=== PATIENT | male | born 1980 | race Caucasian/White ===

== ENCOUNTER 2025-04-22 16:43 | Emergency (ER) | payer OTHER ==
[~2025-04-22] VITALS: Ht 190.5 cm; Wt 109.5 kg
[2025-04-22 17:07] VITALS: TEMP 98.2
[2025-04-22] MEDS ORDERED: ATOR-2 PO (17:18)
[2025-04-22] MEDS ORDERED: LOSA50TA65 PO (17:18)
[2025-04-22] MEDS ORDERED: ASPI81TA87 PO (17:18)
[2025-04-22 17:22] LABS: PLATELET COUNT (AUTO) 406 K/uL (150-450); RED BLOOD CELL COUNT(AUTO) 5.30 MIL/uL (4.50-5.90); RED CELL DISTRIBUTION WIDTH 13.3 % (11.5-14.5); WHITE BLOOD COUNT (AUTO) 9.7 K/uL (4.5-11.0)
[2025-04-22 17:36] LABS: CALCIUM, TOTAL 9.2 mg/dL (8.8-10.5); CREATININE 0.94 mg/dL (0.60-1.30); GLOMERULAR FILTR. RATE CALC > 60 mL/min (>60); GLUCOSE,RANDOM 96 mg/dL (70-110); SODIUM SERUM 141 mmol/L (136-145); UREA NITROGEN, BLOOD 9 mg/dL (7-18)
[2025-04-22 17:49] LABS: ASPARTATE AMINOTRANSFERASE 36.0 U/L (15-37); CHOL/HDL RATIO 2.5 (4.2-7.3); LDL CHOL (CALC.) 41.0 mg/dL (0-130); TOTAL PROTEIN, SERUM 7.2 g/dL (6.4-8.2)
[2025-04-22 17:52] LABS: APPEARANCE,URINE CLEAR (CLEAR); GLUCOSE, URINE (UA) NEGATIVE (NEGATIVE); LEUKOCYTE ESTERASE ,URINE NEGATIVE (NEGATIVE); NITRATE,URINE NEGATIVE (NEGATIVE); OCCULT BLOOD,URINE NEGATIVE (NEGATIVE); SPECIFIC GRAVITIY, URINE 1.006 (1.003-1.030)
[2025-04-22 18:30] VITALS: BP 132/78; PULSE 71; RESP 16; O2SAT 100
== END 2025-04-22 19:02 ==
LOC: EMS 16:43
DX: Z04.89 Encounter for examination and observation for other specified reasons (principal); I10 Essential (primary) hypertension; Z86.73 Personal history of transient ischemic attack (TIA), and cerebral infarction without residual deficits
CPT/HCPCS: 80048; 80061; 81003; 82248; 84443; 85025; 86592; 87389; 99283